=== PATIENT | male | born 1980 | race Asian ===

== ENCOUNTER 2021-06-18 00:12 | Day surgery (SDC) | payer OTHER, SELFPAY ==
[2021-05-14 13:59] VITALS: BMI 26.4
[2021-06-06 13:43] VITALS: BMI 26.4
--- NOTE | 2021-06-18 08:49 | SUR.PREOP ---
Patient's blood pressure is high upon taking admission vitals (see flow sheet). Patient takes no home meds and has no cardiac history. Informed Mandy, MEDICAL DEVICE who followed up with patient. No new orders at this time.
[2021-06-18 08:52] VITALS: BP 152/117; PULSE 75; RESP 18; TEMP 36.8; O2SAT 98
[2021-06-18] MEDS: LACTATED RINGERS 1,000 ML 150 ML IV CONT (09:01)
--- NOTE | 2021-06-18 09:07 | P.PNAN_ITS ---
Anes - Initial Pre Proc Eval Procedure: Operation Date: 06/18/21 11:00 Proposed Procedures p Colonoscopy - Georges Gann MD Date/Time: 06/18/21 09:07 Surgeon: Georges Gann MD Pre Op Diagnosis: blood in stool, abnormal CAT scan Patient Data Age: 41 Gender: M Height: 1.85 m Weight: 95.5 kg Last Vital Signs Temp 36.8 C 06/18/21 08:52 Pulse 75 06/18/21 08:52 Resp 18 06/18/21 08:52 BP 152/117 H 06/18/21 08:52 Pulse Ox 98 06/18/21 08:52 Allergies Allergy/AdvReac Type Severity Reaction Status Date / Time No Known Allergies Allergy Verified 06/06/21 13:38 Home Medications Medication Instructions Recorded Confirmed Type No Home Medications 04/22/21 06/18/21 History Patient hx anesthesia problems: none Family hx anesthesia problems: none Results Review: All pre-operative results and documents have been reviewed as part of the pre-operative evaluation. [facility] Past Medical History Medical History (Updated 06/18/21 @ 09:09 by Kenji Mathews MD) Overweight (BMI 25.0-29.9) Social History Social History Smoking status: Current every day smoker Tobacco type: cigarettes Alcohol intake: current Drinks per week: 1 Substance use: current Substance use type: marijuana Other substance usage details: DAILY Living arrangements: with family Spiritual care concerns: No Anes - Eval Final PreProcedure Day of Procedure 06/18/21 09:07 Patient weight: overweight Heart: regular rate and rhythm Lungs: clear to auscultation and normal air movement Airway: Mallampati scale class II Neurological: alert and oriented Last oral intake: >/= 8 hours ASA classification: II Emergent: no Anesthetic plan: proceed Anesthesia type and monitoring: general GIVS Results Review: All pre-operative results and documents have been reviewed as part of the pre-operative evaluation. Informed Consent: The patient's anesthetic plan and its attendant risks and benefits were discussed with the patient/family/POA. Questions were solicited and answers provided to the satisfaction of the patient/family/POA.
--- NOTE | 2021-06-18 09:48 | PM.HPGS ---
History of Present Illness History of Present Illness Consent: Risks, benefits, and alternatives have been discussed and questions answered. Patient agrees to proceed with procedure. Chief complaint: blood in stool, abnormal CAT scan Narrative: Omega Meeks is a 41 year old male with episode of rectal bleeding and possible thickening of colon in CT scan, now symptom resolved but never had colonoscopy Review of Systems Constitutional: Constitutional: Denies headache(s) and Denies weakness Eyes: Eyes: Denies blurry vision ENT: Reports Normal hearing present, Denies headache(s) and Denies neck pain Cardiovascular: Cardiovascular: Denies chest pain and Denies dyspnea Respiratory: Respiratory: Denies dyspnea Gastrointestinal: Gastrointestinal: Reports no additional gastrointestinal complaints Genitourinary: Genitourinary: Denies dysuria Musculoskeletal: Musculoskeletal: Denies neck pain Integumentary/Breasts: Skin/Breast: Denies dry skin Neurologic: Reports Normal hearing present, Denies headache(s) and Denies weakness Psychiatric: Psychiatric: Denies anxiety Endocrine: Endocrine: Denies change in body appearance Hematologic/Lymphatic: Hematologic/Lymphatic: Denies easy bleeding Allergic/Immunologic: Allergic/Immunologic: Denies urticaria PMFSH Past Medical History Medical History (Updated 06/18/21 @ 09:49 by Georges Gann MD) Abnormal CT scan, colon Blood in stool Overweight (BMI 25.0-29.9) Social History Social History Smoking status: Current every day smoker Tobacco type: cigarettes Alcohol intake: current Drinks per week: 1 Substance use: current Substance use type: marijuana Other substance usage details: DAILY Living arrangements: with family Spiritual care concerns: No Meds Home Medications and Allergies Home Medications Medication Instructions Recorded Confirmed Type No Home Medications 04/22/21 06/18/21 History Allergies Allergy/AdvReac Type Severity Reaction Status Date / Time No Known Allergies Allergy Verified 06/06/21 13:38 Vital Signs Vital Signs - 24 hr 06/18/21 08:52 Temperature 98.3 F Pulse Rate 75 Respiratory Rate 18 Blood Pressure 152/117 H Pulse Oximetry 98 Exam Const: General: comfortable and no acute distress HENMT: General nose exam: Normal nares present Eyes: General: appearance normal, both eyes and all related structures Neck: Neck: no JVD Resp: Auscultation: clear to auscultation bilaterally Cardio: Rate: regular rate Rhythm: regular rhythm GI: Inspection: non-distended GI Palp: Yes Soft to palpation Skin: General skin exam: normal color Neuro: General: gait normal Speech: normal speech Extrem: General: normal to inspection Psych: Mental Status: mental status grossly normal Assessment and Plan Assessment and plan (1) Blood in stool: Code(s): K92.1 - Melena Status: Acute Assessment and Plan: resolved, probably perianal (2) Abnormal CT scan, colon: Code(s): R93.3 - Abnormal findings on diagnostic imaging of other parts of digestive tract Status: Acute Assessment and Plan: will assess with colonoscopy to check if colitis, etc- now asymptomatic
[2021-06-18 10:15] VITALS: BP 108/79; PULSE 95; RESP 18; O2SAT 97
[2021-06-18 10:25] VITALS: BP 115/83; PULSE 90; RESP 18; O2SAT 99
[2021-06-18 10:32] VITALS: BP 118/87; PULSE 84; RESP 18; O2SAT 98
== END 2021-06-18 10:59 | disposition home or self-care (01) ==
PROVIDERS: PCP Physician Assistant; Visit Provider Internal Medicine Gastroenterology
PROC: 0DJD8ZZ Inspection of Lower Intestinal Tract, Via Natural or Artificial Opening Endoscopic (ICD-10-PCS; CPT 45378; principal; 2021-06-18 11:00)
DX: K92.1 Melena (principal); D12.4 Benign neoplasm of descending colon; K63.5 Polyp of colon; K57.30 Diverticulosis of large intestine without perforation or abscess without bleeding; K64.8 Other hemorrhoids; F17.210 Nicotine dependence, cigarettes, uncomplicated; F12.90 Cannabis use, unspecified, uncomplicated
CPT/HCPCS: 45385; 88305; J2704; J7120